=== PATIENT | male | born 1980 | race Two or more races ===

== ENCOUNTER 2017-02-09 18:13 | Emergency (ER) | payer SELFPAY ==
[~2017-02-09] VITALS: Ht 167.6 cm; Wt 81.6 kg
[2017-02-09] MEDS ORDERED: Ketorolac 60mg Inj IM ONE (18:45)
[2017-02-09] MEDS ORDERED: Cyclobenzaprine 10mg Tab ORAL ONE (18:45)
[2017-02-09] MEDS ORDERED: Morphine Sulfate 4mg/ml Inj IM ONE (20:15)
[2017-02-09] MEDS ORDERED: Tetanus/Diptheria/Pertussis Vaccine 0.5ml Syr IM ONE (20:15)
[2017-02-09] MEDS ORDERED: IBUPROFEN600 MG ORAL (20:17)
[2017-02-09] MEDS ORDERED: NORCO 5-325 TA1 EAC1 ORAL (20:17)
[2017-02-09 20:34] VITALS: BP_SYST 123; BP_SYST 135; BP_DIAS 78; BP_DIAS 79
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
--- NOTE | 2017-02-10 12:55 | Diagnostic Imaging Report ---
Indication: Pain Technique: XRAY L Spine Ltd Comparison: None Findings: There are 5 nonrib-bearing lumbar-type vertebral bodies. No abnormal cervical curvature. Lumbar lordosis is mildly straightened. There is no appreciable spondylolisthesis. There is a mildly displaced fracture of the right transverse process of the L2 vertebral body. Imaged hip and sacroiliac joints are grossly preserved. Bowel gas pattern is nonspecific. Impression: Mildly displaced fracture of the right L2 transverse process. This is discrepant from the preliminary interpretation of the treating ER physician. Findings discussed with with Dr. Morris of the emergency room at 12:45 on 02/10/17.
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
== END 2017-02-09 20:34 | disposition home or self-care (01) ==
LOC: EDBD 18:13 → EMR 18:45
DX: S32.2XXA Fracture of coccyx, initial encounter for closed fracture (principal); M54.9 Dorsalgia, unspecified; Y04.0XXA Assault by unarmed brawl or fight, initial encounter; Y92.89 Other specified places as the place of occurrence of the external cause
CPT/HCPCS: 72020; 72170; 73502; 90471; 90715; 96372; 99284; J2270

== ENCOUNTER 2017-02-10 15:44 | Emergency (ER) | payer MEDICAID ==
[~2017-02-10] VITALS: Ht 165.1 cm; Wt 59.0 kg
[~2017-02-10 15:44] MED LIST: IBUPROFEN600 MG ORAL; NORCO 5-325 TA1 EAC1 ORAL
[2017-02-10 15:51] VITALS: BP 127/83
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
[2017-02-10 16:07] LABS: HEMATOCRIT 40.1 % (42.0-52.0); HEMOGLOBIN 14.4 G/DL (14.2-18.0); LYMPHOCYTES % (AUTO) 6.7 % (20.0-45.0); MEAN CORPUSCULAR VOLUME 99 FL (80-99); PLATELET COUNT 139 K/UL (150-450); RED BLOOD COUNT 4.03 M/UL (4.70-6.10); RED CELL DISTRIBUTION WIDTH 11.6 % (11.6-14.8); WHITE BLOOD COUNT 8.6 K/UL (4.8-10.8)
[2017-02-10 16:08] LABS: BASOPHILS % (AUTO) 0.9 % (0.0-2.0); EOSINOPHILS % (AUTO) 0.2 % (0.0-3.0); MONOCYTES % (AUTO) 6.3 % (1.0-10.0)
[2017-02-10 16:22] LABS: ANION GAP 8 mmol/L (5-15); BLOOD UREA NITROGEN 15 mg/dL (7-18); CALCIUM 7.9 MG/DL (8.5-10.1); CARBON DIOXIDE 29 MMOL/L (21-32); CHLORIDE 101 MMOL/L (98-107); CREATININE 0.8 MG/DL (0.55-1.30); POTASSIUM 3.7 MMOL/L (3.5-5.1); SODIUM 138 MMOL/L (136-145)
[2017-02-10 16:31] LABS: ALANINE AMINOTRANSFERASE 36 U/L (12-78); ALBUMIN 3.6 G/DL (3.4-5.0); ALBUMIN/GLOBULIN RATIO 0.8 (1.0-2.7); ALKALINE PHOSPHATASE 79 U/L (46-116); ASPARTATE AMINO TRANSFERASE 33 U/L (15-37); BILIRUBIN,TOTAL 2.4 MG/DL (0.2-1.0)
[2017-02-10 16:33] LABS: BILIRUBIN,DIRECT 0.4 MG/DL (0.0-0.3)
[2017-02-10] MEDS ORDERED: Morphine Sulfate 4mg/ml Inj IVP ONE (17:00)
[2017-02-10] MEDS ORDERED: Morphine Sulfate 4mg/ml Inj IVP STA (20:18)
[2017-02-10 20:20] VITALS: BP 105/78
[2017-02-10 22:42] VITALS: BP 139/75
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
[2017-02-11 01:04] VITALS: BP 136/72
[2017-02-11 04:14] VITALS: BP 105/57
[2017-02-11 04:15] VITALS: BP 105/57
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
--- NOTE | 2017-02-11 11:57 | Diagnostic Imaging Report ---
Indication: Reason For Exam: BLD Technique: IV administration nonionic contrast. Arterial and delayed acquisitions obtained through the abdomen and pelvis Multiplanar and 3-D reconstructions were generated. Total dose length product 3139 mGycm. CTDIvol(s) 3139 mGy. Radiation dose was minimized using automated exposure control Comparison: none. Reference made to pelvic CT performed earlier the same day Findings: Previously reported complex pelvic fracture and prevesical ecchymosis is again demonstrated. Abdominal aorta is normal in caliber. No evidence of aneurysm or dissection. Patent nonstenotic celiac axis, superior mesenteric artery, inferior mesenteric artery, and bilateral single renal arteries. No evidence of pseudoaneurysm or active contrast extravasation. There is a small right-sided pleural effusion. There is bilateral basilar pulmonary parenchymal atelectasis and consolidation, predominantly in the posterior lower lobes. The heart is borderline enlarged. Normal appendix. No evidence of diverticulosis or diverticulitis. No evidence of extravasated bowel contrast. There are bilateral fat-containing inguinal hernias. Some ecchymosis from the pelvic injury has tracked into the right inguinal hernia fat. No small bowel distention. Distal esophagus, stomach, duodenum are unremarkable. No free or loculated intraperitoneal air or fluid. The liver is diffusely hypoattenuating, consistent with fatty change. There is a 1 cm focus of arterial phase enhancement in segment 5, which is also evidence of more subtle on the venous and delayed phase images. Similar lesion is seen in segment 6 No other focal hepatic abnormality. The gallbladder, bile ducts, pancreas, spleen, adrenals, kidneys, ureters, bladder are all unremarkable. There is a comminuted fracture of the right 11th rib. There is a multipartite fracture of the right 12th rib. There are also fractures of the right ninth, 10th and 11th ribs. There is a fracture of the right L2 transverse process seen on the axial images. The. Coronal images suggest also fractures of the L1, L3, and L4 transverse processes. Impression: Complex pelvic fracture, as described previously-please refer to pelvic CT report Prevesical ecchymosis, related to the above, also described previously Fractures of the right ninth through 12th ribs and right L2 transverse process, possibly the L1, L3, and L4 transverse processes as well Right-sided pleural effusion, likely related to the above. Consolidation at the right lung base may reflect contusion or atelectasis from splinting Left basilar atelectasis and consolidation as well No evidence of acute arterial trauma or active contrast extravasation. No evidence of acute solid organ trauma Enhancing lesions within the right hepatic lobe. Most likely benign hemangiomas Bilateral fat-containing inguinal hernias, also previously reported. This agrees with the preliminary interpretation provided overnight by [facility] service, with the exception of the transverse process fractures not being called. The CT scanner at [facility] is accredited by the [employer] and the scans are performed using protocols designed to limit radiation exposure to as low as reasonably achievable to attain images of sufficient resolution adequate for diagnostic evaluation.
== END 2017-02-11 04:16 | disposition short-term general hospital (02) ==
LOC: EDBD 15:44 → EMR 16:12 → EDBEDREQ 18:07 → UNDOADMIN 18:48 → 2E 18:48 → EDBEDREQ 19:03 → EDBEDREQSVC 19:03 → EMR 02-11 04:16
DX: S32.9XXA Fracture of unspecified parts of lumbosacral spine and pelvis, initial encounter for closed fracture (principal); S32.029A Unspecified fracture of second lumbar vertebra, initial encounter for closed fracture; S39.82XA Other specified injuries of lower back, initial encounter; M25.552 Pain in left hip; M25.551 Pain in right hip; M54.5 Low back pain; Y08.89XA Assault by other specified means, initial encounter; Y92.89 Other specified places as the place of occurrence of the external cause
CPT/HCPCS: 36415; 72192; 74175; 80053; 82248; 85025; 85610; 86850; 86900; 86901; 96374; 96375; 99285; J2270; J2405; Q9967; 99284